=== PATIENT | female | born 1975 | race Caucasian/White ===

== ENCOUNTER 2018-07-12 09:11 | Outpatient (CLI) | payer OTHER, BC ==
--- NOTE | 2018-07-13 08:24 | Mammography Report ---
Reason: SCREENING Procedure Date: 07/12/2018 Accession Number: [id number] / [id number] Procedure: [facility]ENN[facility] - Screening Mammo w/Ismael CPT Code: FULL RESULT: EXAM: Screening Mammo w/Ismael DATE: 07/12/2018 9:41 AM CLINICAL HISTORY: Screening. No reported personal or family history of breast cancer. TECHNIQUE: Bilateral CC and MLO views were obtained. COMPARISON: Baseline FINDINGS: The breasts demonstrate heterogeneously dense fibroglandular parenchyma bilaterally. Bilateral breasts: There are multiple, similar appearing oval, circumscribed margin benign-appearing masses bilaterally. There are no suspicious masses, calcifications or areas of distortion. IMPRESSION: Benign findings RECOMMENDATION: Routine annual screening unless otherwise clinically indicated. BI-RADS CATEGORY 2: Benign findings STANDARD QUALIFYING STATEMENTS: 1. This examination was not reviewed with the aid of Computer-Aided Detection (CAD). 2. A negative or benign imaging report should not preclude biopsy if clinically suspicious findings are present. 3. Dense breasts may obscure an underlying neoplasm. 4. This examination was reviewed with the aid of 3D breast imaging (tomosynthesis).
== END 2018-07-12 09:12 | disposition home or self-care (01) ==
LOC: DI 09:11
PROVIDERS: ATTEND Registered Nurse
DX: Z12.31 Encounter for screening mammogram for malignant neoplasm of breast (principal)
CPT/HCPCS: 77063; 77067